=== PATIENT | male | born 1990 | race Caucasian/White ===

== ENCOUNTER 2018-12-17 23:06 | Emergency (ER) | payer OTHER ==
[~2018-12-17] VITALS: Ht 182.9 cm; Wt 90.9 kg
[2018-12-17] MEDS ORDERED: AMBI5TAB PO (23:12)
[2018-12-17] MEDS ORDERED: ADACEL/BOOSTRIX VACCINE (DIPHTH/PERTUSS/ACELL/TETANUS)0.5ML SYR (90715) IM ONE (23:30)
[2018-12-17] MEDS: MORPHINE 2 MG/ML 1ML SYRINGE (J2270) IV PRN (23:31)
[2018-12-17 23:35] LABS: HEMATOCRIT 42.2 % (42.0-52.0); HEMOGLOBIN 14.7 g/dl (13.5-17.5); MEAN CORPUSCULAR HEMOGLOBIN 29.9 pg (27.0-33.0); MEAN CORPUSCULAR HGB CONC 34.8 g/dl (32.0-36.5); MEAN CORPUSCULAR VOLUME 85.9 fl (80.0-96.0); PLATELET COUNT, AUTOMATED 310 10^3/uL (150-450); RED BLOOD COUNT 4.91 10^6/uL (4.30-6.10); WHITE BLOOD COUNT 8.1 10^3/uL (4.0-10.0)
[2018-12-17 23:58] LABS: BLOOD UREA NITROGEN 19 MG/DL (7-18); CALCIUM LEVEL 8.8 MG/DL (8.5-10.1); CARBON DIOXIDE LEVEL 26 MEQ/L (21-32); CHLORIDE LEVEL 105 MEQ/L (98-107); CREATININE FOR GFR 1.12 MG/DL (0.70-1.30); GLOMERULAR FILTRATION RATE > 60.0 (>60); GLUCOSE, FASTING 86 MG/DL (70-100); POTASSIUM SERUM 4.1 MEQ/L (3.5-5.1); SODIUM LEVEL 140 MEQ/L (136-145)
[2018-12-18] MEDS ORDERED: BUPIVACAINE LIPOSOME/PF 1.3% 20ML VIAL (13.3MG/ML)(EXPAREL)(C9290 PER1MG) INFIL ONE
[2018-12-18] MEDS: MORPHINE 2 MG/ML 1ML SYRINGE (J2270) IV PRN (00:17)
[2018-12-18] MEDS ORDERED: MORPHINE 4 MG/ML 1ML VIAL/SYRINGE (J2270) As Ordered ONE (00:50)
[2018-12-18] MEDS ORDERED: AUGMENTIN 875 MG TAB PO ONE (01:45)
[2018-12-18] MEDS ORDERED: MORPHINE 4 MG/ML 1ML VIAL/SYRINGE (J2270) IV ONE (01:45)
[2018-12-18] MEDS ORDERED: IBUP-1114 PO (01:46)
[2018-12-18] MEDS ORDERED: AUGM875T28 PO (01:46)
[2018-12-18 01:59] VITALS: BP 113/57
--- NOTE | 2018-12-18 07:59 | REP ---
LEFT HAND, FOUR VIEWS: HISTORY: Injury. There is a fracture of the distal phalange of the 1st digit. There is no dislocation. The joint spaces are normal in appearance. IMPRESSION: Fracture of the 1st distal phalange. Electronically Signed by Dax Shell MD 12/18/2018 08:35 A
== END 2018-12-18 02:02 | disposition home or self-care (01) ==
LOC: M ED 23:06
DX: S62.502B Fracture of unspecified phalanx of left thumb, initial encounter for open fracture (principal); S61.102A Unspecified open wound of left thumb with damage to nail, initial encounter; W23.0XXA Caught, crushed, jammed, or pinched between moving objects, initial encounter; Y92.138 Other place on military base as the place of occurrence of the external cause
CPT/HCPCS: 12001; 73130; 80048; 85027; 90471; 90715; 96374; 96376; 99284; C9290; J2270